=== PATIENT | female | born 1950 | race African-American/Black ===

== ENCOUNTER → 2016-05-15 | Outpatient (CLI) | payer MEDICARE, MEDICAID ==
[~2016-05-15] MED LIST: ASPI81CH43 PO; ATOR20TA PO; DIAZ10TA3 PO; GABA300C8 PO; MET25T PO; METH750T3 PO; NORT25CA PO; OXY20CRT PO; PREG25CA PO
== END | disposition home or self-care (01) ==
LOC: LAB 09:12
PROVIDERS: ATTEND Internal Medicine Gastroenterology
DX: B19.20 Unspecified viral hepatitis C without hepatic coma (principal)